=== PATIENT | male | born 1995 | race African-American/Black ===

== ENCOUNTER 2020-03-05 06:52 | Emergency (ER) | payer OTHER ==
[~2020-03-05] VITALS: Ht 182.9 cm; Wt 71.9 kg
[2020-03-05 07:49] LABS: BASO # 0.1 10^3/uL (0.0-0.2); BASO % 1.2 % (0.0-1.0); EOS # 0.1 10^3/uL (0.0-0.5); EOS % 1.3 % (0.0-3.0); HEMATOCRIT 42.7 % (42.0-52.0); HEMOGLOBIN 13.7 g/dl (13.5-17.5); LYMPH # 2.9 10^3/uL (1.5-5.0); LYMPH % 42.8 % (24.0-44.0); MEAN CORPUSCULAR HEMOGLOBIN 27.2 pg (27.0-33.0); MEAN CORPUSCULAR HGB CONC 32.1 g/dl (32.0-36.5); MEAN CORPUSCULAR VOLUME 84.9 fl (80.0-96.0); MONO # 0.6 10^3/uL (0.0-0.8); MONO % 8.9 % (0.0-5.0); NEUTROPHILS # 3.1 10^3/uL (1.5-8.5); NEUTROPHILS % 45.5 % (36.0-66.0); PLATELET COUNT, AUTOMATED 294 10^3/uL (150-450); RED BLOOD COUNT 5.03 10^6/uL (4.30-6.10); WHITE BLOOD COUNT 6.9 10^3/uL (4.0-10.0)
[2020-03-05 08:28] LABS: BLOOD UREA NITROGEN 9 MG/DL (7-18); CALCIUM LEVEL 9.3 MG/DL (8.5-10.1); CARBON DIOXIDE LEVEL 28 MEQ/L (21-32); CHLORIDE LEVEL 105 MEQ/L (98-107); CREATININE FOR GFR 1.09 MG/DL (0.70-1.30); FREE T4 1.05 NG/DL (0.76-1.46); GLOMERULAR FILTRATION RATE > 60.0 (>60); GLUCOSE, FASTING 84 MG/DL (70-100); POTASSIUM SERUM 3.5 MEQ/L (3.5-5.1); SODIUM LEVEL 141 MEQ/L (136-145)
[2020-03-05 09:37] VITALS: BP 115/74
[2020-03-05 09:50] LABS: PERCENT SATURATION 14.2 % (19.7-50.0)
[2020-03-05 10:00] LABS: FOLATE 12.2 NG/ML (>5.4)
== END 2020-03-05 09:39 | disposition home or self-care (01) ==
LOC: M ED 06:52
DX: G47.00 Insomnia, unspecified (principal); D50.9 Iron deficiency anemia, unspecified